=== PATIENT | female | born 1945 | race Caucasian/White ===

== ENCOUNTER 2016-08-23 12:06 | Emergency (ER) | payer OTHER ==
[~2016-08-23] VITALS: Ht 162.6 cm; Wt 73.4 kg
[~2016-08-23 12:06] MED LIST: ADULT LOW DOSE81 M1 PO; ADVAIR HFA120 INHALA IH; ALTACE10 MG PO; ASPIR-LOW81 MG PO; ATENOLOL50 MG PO; CATAPRES0.1 MG PO; CITALOPRAM HBR10 MG PO; CYANOCOBAL1000 MCG/2 IM; FOLIC ACID1 MG PO; IRON325 M1 PO; LIBRIUM25 MG PO; NAPROSYN500 MG PO; NORCO 5/3251 TABLET PO; PREDNISONE20 MG PO; PROAIR HFA8.5 GM IH; PROCARDIA XL30 MG PO; SPIRIVA RESPIMAT4 GM IH; TENORETIC 501 TABLET PO; TYLENOL EXTRA500 MG PO; VITAMIN B-1100 MG PO; ZOCOR40 MG PO
[2016-08-23 12:25] LABS: HEMATOCRIT 40.6 % (36.0-46.0); MCH 33.6 PG (29.0-34.0); MCHC 35.2 G/DL (30.0-36.0); MCV 95.3 FL (83-99); MEAN PLAT.VOLUME 8.8 uM^3 (9.5-12.4); PLATELET COUNT 486 K/uL (156-360); RBC DIS.WIDTH-CV 12.2 % (11.8-14.6); RBC DIS.WIDTH-SD 41.5 % (39-53); RED BLOOD COUNT 4.26 M/uL (3.80-5.20); WHITE BLOOD COUNT 14.4 K/uL (4.1-10.2)
[2016-08-23 12:34] LABS: CHLORIDE 101 mEq/L (99-109); POTASSIUM 3.9 mEq/L (3.7-5.4); SODIUM 135 mEq/L (136-147)
[2016-08-23 12:35] LABS: GLUCOSE 116 mg/dL (70-99)
[2016-08-23 12:37] LABS: ANION GAP 12 MEQ/L (2-14)
[2016-08-23 12:39] LABS: GFR ESTIMATE (CALCULATED) > 59 mL/min/
[2016-08-23 12:40] LABS: UREA NITROGEN (BUN) 13 mg/dL (9-23)
[2016-08-23] MEDS ORDERED: PERCOCET 5/31 TABLET PO (13:11)
[2016-08-23] MEDS ORDERED: MOBIC15 MG PO (13:11)
[2016-08-23 13:25] LABS: TROP-I INTERPRETATION NEGATIVE; TROPONIN-I < 0.01 ng/mL (0.0-0.30)
[2016-08-23 14:07] VITALS: BP 145/89
== END 2016-08-23 14:08 | disposition home or self-care (01) ==
LOC: EME → EDBD 12:06 → EME 12:06
PROVIDERS: Emergency Medicine
DX: M25.511 Pain in right shoulder (principal); I10 Essential (primary) hypertension; J43.9 Emphysema, unspecified; J44.9 Chronic obstructive pulmonary disease, unspecified; F17.200 Nicotine dependence, unspecified, uncomplicated
CPT/HCPCS: 70450; 71020; 80048; 84484; 85027; 99281; 99284

== ENCOUNTER 2016-11-14 16:31 | Inpatient (IN) | payer OTHER ==
[~2016-11-14] VITALS: Ht 162.6 cm; Wt 59.4 kg
[~2016-11-14 16:31] MED LIST changes: +MOBIC15 MG PO; +PERCOCET 5/31 TABLET PO
[2016-11-14 16:48] LABS: EOSINOPHIL (%) 0 % (0-5); HEMATOCRIT 42.9 % (36.0-46.0); IMMATURE GRANULOCYTE (%) 0.5 % (0.0-0.7); IMMATURE GRANULOCYTE COUNT 0.1 K/uL; INSTRUMENT ABS NEUTROPHIL CT 15.3 K/uL; LYMPHOCYTE COUNT 0.9 K/uL (1.0-2.8); MCH 30.1 PG (29.0-34.0); MCHC 33.8 G/DL (30.0-36.0); MCV 89.2 FL (83-99); MEAN PLAT.VOLUME 8.6 uM^3 (9.5-12.4); MONOCYTE (%) 1.7 % (3-12); MONOCYTE COUNT 0.3 K/uL (0-0.8); NEUTROPHIL (%) 92.4 % (45-76); NEUTROPHIL COUNT 15.3 K/uL (1.8-6.4); PLATELET COUNT 488 K/uL (156-360); RBC DIS.WIDTH-SD 42.8 % (39-53); RED BLOOD COUNT 4.81 M/uL (3.80-5.20); WHITE BLOOD COUNT 16.6 K/uL (4.1-10.2)
[2016-11-14 17:06] LABS: INTER. NORMALIZED RATIO 1.1; PROTHROMBIN TIME 10.8 (9.2-11.2); PTT 33.8 (25-32)
[2016-11-14 17:08] LABS: AMYLASE 22 IU/L (1-118); CHLORIDE 100 mEq/L (99-109); POTASSIUM 4.1 mEq/L (3.7-5.4); SODIUM 134 mEq/L (136-147)
[2016-11-14 17:10] LABS: GLUCOSE 147 mg/dL (70-99)
[2016-11-14 17:12] LABS: ANION GAP 20 MEQ/L (2-14)
[2016-11-14 17:13] LABS: SERUM ETHYL ALCOHOL < 10 mg/dL
[2016-11-14 17:14] LABS: GFR ESTIMATE (CALCULATED) > 59 mL/min/
[2016-11-14 17:15] LABS: UREA NITROGEN (BUN) 11 mg/dL (9-23)
[2016-11-14 17:17] LABS: LIPASE 9 U/L (1.0-51.0); TROP-I INTERPRETATION INDETERMINATE; TROPONIN-I 0.57 ng/mL (0.0-0.30)
[2016-11-14 20:37] LABS: ADD MIUA? YES; BILIRUBIN NEGATIVE; BLOOD LARGE; COLOR YELLOW ((YELLOW)); GLUCOSE (STRIP) NEGATIVE; KETONES 20; LEUKOCYTES SMALL; NITRITE NEGATIVE; PROTEIN (STRIP) 30; SPECIFIC GRAVITY 1.031 (1.000-1.030)
[2016-11-14] MEDS ORDERED: CENTRUM SILVER1 EAC3 PO (20:38)
[2016-11-14 20:53] LABS: AMPHETAMINE NEGATIVE (500 ng/mL); BARBITURATES NEGATIVE (200 ng/mL); BENZODIAZEPINES NEGATIVE (150 ng/mL); COCAINE NEGATIVE (150 ng/mL); METHADONE NEGATIVE (200 ng/mL); METHAMPHETAMINE NEGATIVE (500 ng/mL); OPIATES (MORPHINE) NEGATIVE (100 ng/mL); OXYCODONE NEGATIVE (100 ng/mL); PHENCYCLIDINE NEGATIVE (25 ng/mL); PROPOXYPHENE NEGATIVE (300 ng/mL); RED BLOOD CELLS TNTC /HPF (0-5); THC CANNABINOIDS NEGATIVE (50 ng/mL); TRICYCLIC ANTIDEPRESSANTS NEGATIVE (300 ng/mL); UCUL ADDED? NO
[2016-11-14 20:54] LABS: CRYSTALS NONE SEEN; INTERNAL CONTROLS VALID? YES
[2016-11-14 21:34] LABS: EPITHELIAL CELLS RARE /HPF
[2016-11-14 21:35] LABS: BACTERIA 1+ /HPF; MUCUS 1+ /LPF
[2016-11-14 21:36] LABS: CASTS PRESENT /LPF; FINE GRANULAR CASTS RARE /LPF
[2016-11-14 23:59] LABS: CHLORIDE 103 mEq/L (99-109); POTASSIUM 3.9 mEq/L (3.7-5.4); SODIUM 136 mEq/L (136-147)
[2016-11-15] VITALS (9 sets, daily range): BP systolic 141–162; BP diastolic 66–82
[2016-11-15 00:02] LABS: ANION GAP 18 MEQ/L (2-14)
[2016-11-15 00:03] LABS: GLUCOSE 104 mg/dL (70-99)
[2016-11-15 00:05] LABS: GFR ESTIMATE (CALCULATED) > 59 mL/min/
[2016-11-15 00:06] LABS: UREA NITROGEN (BUN) 10 mg/dL (9-23)
[2016-11-15 00:18] LABS: TROP-I INTERPRETATION POSITIVE; TROPONIN-I 5.07 ng/mL (0.0-0.30)
[2016-11-15 04:22] LABS: METH RESISTANT S AUREUS PCR NEGATIVE (NEGATIVE)
[2016-11-15 04:41] LABS: PROBE CHECK PASS; SPECIMEN PROCESSING CONTROL PASS
[2016-11-15 06:18] LABS: HDL CHOLESTEROL 40 MG/DL (Desirable>=50); LDL CHOLESTEROL 164 mg/dL (Desirable<100); NON-HDL CHOLESTEROL 185 mg/dL (Desirable<160); TOTAL CHOLESTEROL 225 mg/dL (Desirable<200); TRIGLYCERIDES 103 MG/DL (Normal: <150)
[2016-11-15 06:25] LABS: TROP-I INTERPRETATION POSITIVE; TROPONIN-I 11.21 ng/mL (0.0-0.30)
[2016-11-15 07:34] LABS: Estimated Average Glucose 108 mg/dL (70-123); HEMOGLOBIN A1c (GLYCOHEMOGLOB) 5.4 % HGB (Below 5.7)
[2016-11-15 12:32] LABS: TROP-I INTERPRETATION POSITIVE; TROPONIN-I 10.49 ng/mL (0.0-0.30)
[2016-11-15 16:16] LABS: ADD MIUA? YES; BILIRUBIN NEGATIVE; BLOOD LARGE; COLOR AMBER ((YELLOW)); GLUCOSE (STRIP) NEGATIVE; KETONES 20; LEUKOCYTES TRACE; NITRITE NEGATIVE; PROTEIN (STRIP) 30; SPECIFIC GRAVITY 1.025 (1.000-1.030)
[2016-11-15 18:21] LABS: EPITHELIAL CELLS 1+ /HPF; MUCUS 2+ /LPF; RED BLOOD CELLS TNTC /HPF (0-5)
[2016-11-15 18:22] LABS: BACTERIA 2+ /HPF; UCUL ADDED? YES
[2016-11-16] VITALS (10 sets, daily range): BP systolic 131–181; BP diastolic 62–94
[2016-11-16 05:52] LABS: EOSINOPHIL (%) 0.2 % (0-5); HEMATOCRIT 38.3 % (36.0-46.0); IMMATURE GRANULOCYTE (%) 0.5 % (0.0-0.7); IMMATURE GRANULOCYTE COUNT 0.1 K/uL; INSTRUMENT ABS NEUTROPHIL CT 8.3 K/uL; LYMPHOCYTE COUNT 1.7 K/uL (1.0-2.8); MCH 29.7 PG (29.0-34.0); MCHC 33.2 G/DL (30.0-36.0); MCV 89.7 FL (83-99); MONOCYTE (%) 6.2 % (3-12); MONOCYTE COUNT 0.7 K/uL (0-0.8); NEUTROPHIL (%) 77.2 % (45-76); NEUTROPHIL COUNT 8.3 K/uL (1.8-6.4); PLATELET COUNT 401 K/uL (156-360); RBC DIS.WIDTH-CV 13.6 % (11.8-14.6); RBC DIS.WIDTH-SD 44.3 % (39-53); RED BLOOD COUNT 4.27 M/uL (3.80-5.20)
[2016-11-16 05:53] LABS: WHITE BLOOD COUNT 10.7 K/uL (4.1-10.2)
[2016-11-16 06:02] LABS: ANION GAP 13 MEQ/L (2-14); CHLORIDE 105 MEQ/L (99-109); GFR ESTIMATE (CALCULATED) > 59 mL/min/; GLUCOSE 82 mg/dL (70-99); SAMPLE HEMOLYSIS CHECK 0; SAMPLE ICTERIC CHECK 0; SAMPLE LIPEMIA CHECK 0; SODIUM 137 MEQ/L (136-147); UREA NITROGEN (BUN) 6 mg/dL (9-23)
[2016-11-16 06:07] LABS: POTASSIUM 3.1 MEQ/L (3.7-5.4)
[2016-11-16 13:18] LABS: POINT-OF-CARE METER ID UU13113803
[2016-11-17] VITALS (7 sets, daily range): BP systolic 135–175; BP diastolic 68–86
[2016-11-17 07:10] LABS: EOSINOPHIL (%) 0.1 % (0-5); HEMATOCRIT 38.2 % (36.0-46.0); IMMATURE GRANULOCYTE (%) 0.4 % (0.0-0.7); IMMATURE GRANULOCYTE COUNT 0.1 K/uL; INSTRUMENT ABS NEUTROPHIL CT 10.5 K/uL; LYMPHOCYTE COUNT 1.5 K/uL (1.0-2.8); MEAN PLAT.VOLUME 8.9 uM^3 (9.5-12.4); MONOCYTE (%) 4.4 % (3-12); MONOCYTE COUNT 0.6 K/uL (0-0.8); NEUTROPHIL (%) 83.4 % (45-76); NEUTROPHIL COUNT 10.5 K/uL (1.8-6.4); PLATELET COUNT 434 K/uL (156-360); RBC DIS.WIDTH-CV 13.2 % (11.8-14.6); RBC DIS.WIDTH-SD 42.8 % (39-53); RED BLOOD COUNT 4.34 M/uL (3.80-5.20); WHITE BLOOD COUNT 12.6 K/uL (4.1-10.2)
[2016-11-17 07:33] LABS: ANION GAP 13 MEQ/L (2-14); CHLORIDE 99 MEQ/L (99-109); GFR ESTIMATE (CALCULATED) > 59 mL/min/; GLUCOSE 94 mg/dL (70-99); POTASSIUM 3.5 MEQ/L (3.7-5.4); SAMPLE HEMOLYSIS CHECK 0; SAMPLE ICTERIC CHECK 0; SAMPLE LIPEMIA CHECK 0; SODIUM 132 MEQ/L (136-147); UREA NITROGEN (BUN) 5 mg/dL (9-23)
[2016-11-18] VITALS (7 sets, daily range): BP systolic 118–174; BP diastolic 60–81
[2016-11-18 05:50] LABS: EOSINOPHIL (%) 0.8 % (0-5); EOSINOPHIL COUNT 0.1 K/uL (0-0.3); HEMATOCRIT 35.9 % (36.0-46.0); IMMATURE GRANULOCYTE (%) 0.6 % (0.0-0.7); IMMATURE GRANULOCYTE COUNT 0.1 K/uL; INSTRUMENT ABS NEUTROPHIL CT 8.6 K/uL; LYMPHOCYTE COUNT 1.4 K/uL (1.0-2.8); MCH 30.2 PG (29.0-34.0); MCHC 33.7 G/DL (30.0-36.0); MCV 89.5 FL (83-99); MEAN PLAT.VOLUME 8.9 uM^3 (9.5-12.4); MONOCYTE (%) 5.9 % (3-12); MONOCYTE COUNT 0.6 K/uL (0-0.8); NEUTROPHIL (%) 79.4 % (45-76); NEUTROPHIL COUNT 8.6 K/uL (1.8-6.4); PLATELET COUNT 435 K/uL (156-360); RBC DIS.WIDTH-CV 13.5 % (11.8-14.6); RBC DIS.WIDTH-SD 44.1 % (39-53); RED BLOOD COUNT 4.01 M/uL (3.80-5.20); WHITE BLOOD COUNT 10.8 K/uL (4.1-10.2)
[2016-11-18 06:17] LABS: ANION GAP 11 MEQ/L (2-14); CHLORIDE 103 MEQ/L (99-109); GFR ESTIMATE (CALCULATED) > 59 mL/min/; GLUCOSE 81 mg/dL (70-99); POTASSIUM 3.9 MEQ/L (3.7-5.4); SAMPLE HEMOLYSIS CHECK 0; SAMPLE ICTERIC CHECK 0; SAMPLE LIPEMIA CHECK 0; SODIUM 134 MEQ/L (136-147); UREA NITROGEN (BUN) 7 mg/dL (9-23)
[2016-11-19] VITALS (9 sets, daily range): BP systolic 98–184; BP diastolic 59–98
[2016-11-19 04:02] LABS: ADD MIUA? YES; BILIRUBIN NEGATIVE; BLOOD LARGE; COLOR YELLOW ((YELLOW)); GLUCOSE (STRIP) NEGATIVE; KETONES 20; LEUKOCYTES NEGATIVE; NITRITE NEGATIVE; PROTEIN (STRIP) NEGATIVE; SPECIFIC GRAVITY 1.006 (1.000-1.030); UROBILINOGEN 0.2 MG/DL (0.2-1.0)
[2016-11-19 04:31] LABS: RED BLOOD CELLS TNTC /HPF (0-5); WHITE BLOOD CELLS 0-5 /HPF (0-5)
[2016-11-19 04:32] LABS: BACTERIA 2+ /HPF; EPITHELIAL CELLS RARE /HPF; MUCUS NONE SEEN /LPF
[2016-11-19 06:59] LABS: ANION GAP 13 MEQ/L (2-14); CHLORIDE 100 MEQ/L (99-109); EOSINOPHIL COUNT 0.1 K/uL (0-0.3); GFR ESTIMATE (CALCULATED) > 59 mL/min/; GLUCOSE 73 mg/dL (70-99); IMMATURE GRANULOCYTE (%) 0.7 % (0.0-0.7); IMMATURE GRANULOCYTE COUNT 0.1 K/uL; INSTRUMENT ABS NEUTROPHIL CT 7.7 K/uL; LYMPHOCYTE COUNT 1.3 K/uL (1.0-2.8); MCH 30.2 PG (29.0-34.0); MCHC 33.5 G/DL (30.0-36.0); MCV 90.1 FL (83-99); MEAN PLAT.VOLUME 9.5 uM^3 (9.5-12.4); MONOCYTE (%) 5.8 % (3-12); MONOCYTE COUNT 0.6 K/uL (0-0.8); NEUTROPHIL COUNT 7.7 K/uL (1.8-6.4); PLATELET COUNT 511 K/uL (156-360); POTASSIUM 3.6 MEQ/L (3.7-5.4); RBC DIS.WIDTH-CV 13.4 % (11.8-14.6); RBC DIS.WIDTH-SD 44.2 % (39-53); RED BLOOD COUNT 4.44 M/uL (3.80-5.20); SAMPLE HEMOLYSIS CHECK 0; SAMPLE ICTERIC CHECK 0; SAMPLE LIPEMIA CHECK 0; SODIUM 133 MEQ/L (136-147); UREA NITROGEN (BUN) 6 mg/dL (9-23); WHITE BLOOD COUNT 9.7 K/uL (4.1-10.2)
[2016-11-20 03:00] VITALS: BP 133/77
[2016-11-20 06:52] LABS: EOSINOPHIL (%) 0.7 % (0-5); EOSINOPHIL COUNT 0.1 K/uL (0-0.3); HEMATOCRIT 38.1 % (36.0-46.0); IMMATURE GRANULOCYTE (%) 0.7 % (0.0-0.7); IMMATURE GRANULOCYTE COUNT 0.1 K/uL; INSTRUMENT ABS NEUTROPHIL CT 8.1 K/uL; LYMPHOCYTE COUNT 1.3 K/uL (1.0-2.8); MCH 29.8 PG (29.0-34.0); MCHC 34.4 G/DL (30.0-36.0); MCV 86.8 FL (83-99); MEAN PLAT.VOLUME 9.1 uM^3 (9.5-12.4); MONOCYTE (%) 5.2 % (3-12); MONOCYTE COUNT 0.5 K/uL (0-0.8); NEUTROPHIL (%) 80.6 % (45-76); NEUTROPHIL COUNT 8.1 K/uL (1.8-6.4); PLATELET COUNT 536 K/uL (156-360); RBC DIS.WIDTH-CV 13.4 % (11.8-14.6); RBC DIS.WIDTH-SD 42.3 % (39-53); RED BLOOD COUNT 4.39 M/uL (3.80-5.20); WHITE BLOOD COUNT 10.1 K/uL (4.1-10.2)
[2016-11-20 07:53] VITALS: BP 188/74
[2016-11-20 08:17] LABS: ANION GAP 12 MEQ/L (2-14); CHLORIDE 102 MEQ/L (99-109); GFR ESTIMATE (CALCULATED) > 59 mL/min/; GLUCOSE 99 mg/dL (70-99); POTASSIUM 3.9 MEQ/L (3.7-5.4); SAMPLE HEMOLYSIS CHECK 0; SAMPLE ICTERIC CHECK 0; SAMPLE LIPEMIA CHECK 0; SODIUM 134 MEQ/L (136-147); UREA NITROGEN (BUN) 5 mg/dL (9-23)
[2016-11-20 13:09] VITALS: BP 104/62
[2016-11-20 16:19] VITALS: BP 131/60
[2016-11-20 20:20] VITALS: BP 137/68
[2016-11-21] VITALS: BP 120/60
[2016-11-21 04:00] VITALS: BP 129/69
[2016-11-21 07:39] LABS: ANION GAP 7 MEQ/L (2-14); CHLORIDE 104 MEQ/L (99-109); GFR ESTIMATE (CALCULATED) > 59 mL/min/; GLUCOSE 99 mg/dL (70-99); POTASSIUM 3.6 MEQ/L (3.7-5.4); SAMPLE HEMOLYSIS CHECK 0; SAMPLE ICTERIC CHECK 0; SAMPLE LIPEMIA CHECK 0; SODIUM 138 MEQ/L (136-147); UREA NITROGEN (BUN) 9 mg/dL (9-23)
[2016-11-21 07:40] LABS: EOSINOPHIL (%) 1.9 % (0-5); EOSINOPHIL COUNT 0.2 K/uL (0-0.3); HEMATOCRIT 35.5 % (36.0-46.0); IMMATURE GRANULOCYTE (%) 0.9 % (0.0-0.7); IMMATURE GRANULOCYTE COUNT 0.1 K/uL; INSTRUMENT ABS NEUTROPHIL CT 5.9 K/uL; LYMPHOCYTE COUNT 1.8 K/uL (1.0-2.8); MCHC 33.8 G/DL (30.0-36.0); MCV 88.8 FL (83-99); MEAN PLAT.VOLUME 9.2 uM^3 (9.5-12.4); MONOCYTE (%) 8.1 % (3-12); MONOCYTE COUNT 0.7 K/uL (0-0.8); NEUTROPHIL (%) 67.9 % (45-76); NEUTROPHIL COUNT 5.9 K/uL (1.8-6.4); PLATELET COUNT 490 K/uL (156-360); RBC DIS.WIDTH-CV 13.7 % (11.8-14.6); RBC DIS.WIDTH-SD 44.5 % (39-53); WHITE BLOOD COUNT 8.6 K/uL (4.1-10.2)
[2016-11-21 08:54] VITALS: BP 147/71
[2016-11-21 12:33] VITALS: BP 145/70
[2016-11-21 16:38] VITALS: BP 150/68
[2016-11-21 20:21] VITALS: BP 127/55
[2016-11-22 00:24] VITALS: BP 139/66
[2016-11-22 03:56] VITALS: BP 132/82
[2016-11-22 07:52] VITALS: BP 163/76
[2016-11-22] MEDS ORDERED: CLOPIDOGREL75 MG PO (08:47)
[2016-11-22] MEDS ORDERED: ASPIR-LOW81 MG PO (08:47)
[2016-11-22] MEDS ORDERED: LOPRESSOR25 MG PO (08:47)
[2016-11-22] MEDS ORDERED: ATORVASTATIN CA80 MG PO (08:47)
[2016-11-22 11:18] VITALS: BP 183/81
[2016-11-22 19:40] VITALS: BP 149/75
[2016-11-23 04:04] VITALS: BP 109/58
[2016-11-23 08:11] VITALS: BP 127/58
== END 2016-11-23 15:25 | DRG 64 ==
LOC: EME 16:31 → EDOF 23:57 → 4WEST 23:57 → 4EAST 11-16 16:18 → 5SOUTH 11-20 19:55
PROVIDERS: Emergency Medicine; Hospitalist; Internal Medicine
DX: I63.50 Cerebral infarction due to unspecified occlusion or stenosis of unspecified cerebral artery (principal); I21.19 ST elevation (STEMI) myocardial infarction involving other coronary artery of inferior wall; I69.351 Hemiplegia and hemiparesis following cerebral infarction affecting right dominant side; F33.9 Major depressive disorder, recurrent, unspecified; N39.0 Urinary tract infection, site not specified; J98.11 Atelectasis; F05 Delirium due to known physiological condition; J44.9 Chronic obstructive pulmonary disease, unspecified; I65.22 Occlusion and stenosis of left carotid artery; F17.210 Nicotine dependence, cigarettes, uncomplicated; F10.10 Alcohol abuse, uncomplicated; I65.1 Occlusion and stenosis of basilar artery; I73.9 Peripheral vascular disease, unspecified; I10 Essential (primary) hypertension; E78.5 Hyperlipidemia, unspecified; I67.2 Cerebral atherosclerosis; I69.392 Facial weakness following cerebral infarction; E53.8 Deficiency of other specified B group vitamins; H53.47 Heteronymous bilateral field defects; E87.6 Hypokalemia; R13.10 Dysphagia, unspecified; I69.391 Dysphagia following cerebral infarction
CPT/HCPCS: 70450; 70496; 70498; 70544; 70551; 71010; 71275; 80048; 80048 91; 80061; 81003; 82150; 82948; 83036; 83605; 83690; 84484; 85025; 85027; 85610; 85730; 86850; 86900; 86901; 87086; 87641; 92610 GN; 93005; 93306; 93880; 94799; 97530 GO; 97530 GP; 99281; 99285; G0480; J0360; J0696; J1644; J1885; J2060; J2270; J3480; J7030; J7050